=== PATIENT | female | born 1970 | race Caucasian/White ===

== ENCOUNTER 2017-05-20 19:22 | Emergency (ER) | payer OTHER ==
[~2017-05-20] VITALS: Ht 175.3 cm; Wt 102.0 kg
[2017-05-20] MEDS ORDERED: LISI-660 PO (19:33)
[2017-05-20] MEDS ORDERED: LISI1TAB9 PO (19:41)
[2017-05-20] MEDS ORDERED: LIDOCAINE HCL 1%/EPI 1:200,000/PF 10 ML VIAL INJ ONE (20:00)
[2017-05-20] MEDS ORDERED: SULFAMETHOX/TRIMETH DS 800-160 MG/TABLET PO ONE (20:00)
[2017-05-20] MEDS ORDERED: HYDROCHLOROTHIAZIDE 25 MG TABLET PO ONE (20:00)
[2017-05-20] MEDS ORDERED: CloNIDine HCL 0.1 MG TABLET PO ONE ×2 (20:00→21:15)
[2017-05-20] MEDS ORDERED: CEPHALEXIN MONOHYDRATE 500 MG CAPSULE PO ONE (20:00)
[2017-05-20] MEDS ORDERED: HYDROCODONE/ACETAMINOPHEN 5-325 MG TABLET PO ONE ×2 (20:00→20:15)
[2017-05-20] MEDS ORDERED: LIDOCAINE HCL 1%/EPI 1:200,000/PF 30 ML VIAL INJ ONE (20:30)
[2017-05-20 21:14] VITALS: BP 210/131
== END 2017-05-20 21:24 | disposition home or self-care (01) ==
LOC: EMS 19:25
DX: L02.411 Cutaneous abscess of right axilla (principal); I10 Essential (primary) hypertension
CPT/HCPCS: 10060; 99284; J3490

== ENCOUNTER 2017-05-22 09:39 | Emergency (ER) | payer OTHER ==
[~2017-05-22] VITALS: Ht 175.3 cm; Wt 102.3 kg
[~2017-05-22 09:39] MED LIST: LISI1TAB9 PO
[2017-05-22] MEDS ORDERED: HYDR25TA PO (09:48)
[2017-05-22] MEDS ORDERED: ABX PO (09:48)
[2017-05-22 09:50] VITALS: BP 160/99
[2017-05-22] MEDS ORDERED: IBUPROFEN 800 MG TABLET PO ONE (11:00)
== END 2017-05-22 11:08 | disposition home or self-care (01) ==
LOC: EMS 09:41
DX: Z48.00 Encounter for change or removal of nonsurgical wound dressing (principal); I10 Essential (primary) hypertension
CPT/HCPCS: 99282